=== PATIENT | female | born 1980 | race Caucasian/White ===

== ENCOUNTER 2020-09-24 20:39 | Emergency (ER) | payer MEDICAID, OTHER ==
[~2020-09-24] VITALS: Ht 157.5 cm; Wt 72.6 kg
[~2020-09-24 20:39] MED LIST: ACET-8386 PO; [UNRECOGNIZED DRUG - CODE] PO
[2020-09-24 21:02] VITALS: BP 124/80
--- NOTE | 2020-09-24 21:03 | NUR ---
TO BED AMBULATORY
--- NOTE | 2020-09-24 21:20 | NUR ---
PATIENT PRESENTS TO ED WITH C/O ABDOMINAL PAIN. "IT'S MY CROHN'S DISEASE. I TOOK MY LAST DOSE OF STEROIDS THIS MORNING . SKIN IS PINK/WARM/DRY; AAOX4 WITH EVEN AND STEADY GAIT; LUNGS CLEAR BL; HR EVEN AND REGULAR; PT DENIES ANY FEVER, CP, PATIENT STATES PAIN OF 8/10 AT THIS TIME; VSS; PATIENT POSITIONED FOR COMFORT; HOB ELEVATED; BEDRAILS UP X2; BED DOWN. ER MD MADE AWARE OF PT STATUS.
--- NOTE | 2020-09-24 21:50 | NUR ---
UA OBTAINED AND DIPPED
[2020-09-24] MEDS ORDERED: KETOROLAC 60 MG/2 ML VIAL IM ONE (22:20)
[2020-09-24] MEDS ORDERED: ACET-8386 PO (23:02)
[2020-09-24] MEDS ORDERED: PRED20TA5 PO (23:02)
[2020-09-24] MEDS ORDERED: ONDA8TAB87 PO (23:02)
[2020-09-24] MEDS ORDERED: IBUP-2213 PO (23:02)
[2020-09-24 23:15] VITALS: BP 124/80
--- NOTE | 2020-09-24 23:15 | NUR ---
Patient discharged with v/s stable. Written and verbal after care instructions given and explained. Patient alert, oriented and verbalized understanding of instructions. Ambulatory with steady gait. All questions addressed prior to discharge. ID band removed. Patient advised to follow up with PMD. Rx of HYDROCODONE, IBUPROFEN, PREDNISONE given. Patient educated on indication of medication including possible reaction and side effects. Opportunity to ask questions provided and answered.
== END 2020-09-24 23:15 | disposition home or self-care (01) ==
LOC: MED 20:39
DX: R10.9 Unspecified abdominal pain (principal); R19.7 Diarrhea, unspecified; R11.0 Nausea; Z79.899 Other long term (current) drug therapy
CPT/HCPCS: 81002; 81025; 96372; 99283; J1885

== ENCOUNTER 2023-08-19 23:16 | Inpatient (IN) | payer BC, OTHER ==
[~2023-08-19] VITALS: Ht 157.5 cm; Wt 80.3 kg
[~2023-08-19 23:16] MED LIST changes: -ACET-8386 PO; +ACET-8905 PO; +IBUP-2213 PO; +ONDA8TAB87 PO; +PRED20TA5 PO
[2023-08-19 23:21] VITALS: BP 175/99; PULSE 97; RESP 18; TEMP 98.3; O2SAT 99
[2023-08-20 00:43] LABS: BASOPHILS # (AUTO) 0.1 K/uL (0.00-0.22); BASOPHILS % (AUTO) 1.5 % (0.0-2.0); EOSINOPHILS % (AUTO) 0.5 % (0.0-4.0); HEMATOCRIT 40.2 % (36-48); HEMOGLOBIN 13.6 g/dL (12.0-16.0); LYMPHOCYTES # (AUTO) 1.7 K/uL (2.5-16.5); LYMPHOCYTES % (AUTO) 31.7 % (20.5-51.1); MEAN CORPUSCULAR HEMOGLOBIN 31 pg (27-31); MEAN CORPUSCULAR HGB CONC 34 g/dL (33-37); MEAN CORPUSCULAR VOLUME 91.7 fL (80-94); MONOCYTES # (AUTO) 0.5 K/uL (0.8-1.0); MONOCYTES % (AUTO) 9.8 % (1.7-9.3); NEUTROPHILS % (AUTO) 56.5 % (42.2-75.2); PLATELET COUNT (AUTO) 296 K/uL (140-450); RED BLOOD CELL COUNT(AUTO) 4.39 MIL/uL (4.20-5.40); RED CELL DISTRIBUTION WIDTH 13.4 % (11.6-13.7); WHITE BLOOD COUNT (AUTO) 5.2 K/uL (4.8-10.8)
[2023-08-20 00:47] LABS: AMPHETAMINE, URINE NEGATIVE ng/ml (NEG <=1000); BARBITURATE, URINE NEGATIVE ng/ml (NEG <=200); BENZODIAZEPINE, URINE NEGATIVE ng/mL (NEG <=200); CANNABINOID, URINE NEGATIVE ng/mL (NEG <=50); COCAINE, URINE NEGATIVE ng/mL (NEG <=300); OPIATE, URINE NEGATIVE ng/mL (NEG <=2000); PHENCYCLIDINE SCREEN,URINE NEGATIVE ng/mL (NEG <=25)
[2023-08-20 00:55] LABS: ALANINE AMINOTRANSFERASE 304 U/L (12-78); ALBUMIN 3.6 g/dL (3.4-5.0); ALKALINE PHOSPHATASE 110 U/L (50-136); ANION GAP 10.4 (8-16); ASPARTATE AMINOTRANSFERASE 159 U/L (15-37); CALCIUM 8.7 mg/dL (8.5-10.1); CARBON DIOXIDE 26.4 mmol/L (21-32); CHLORIDE 104 mmol/L (98-107); CREATININE 0.7 mg/dL (0.6-1.3); GFR ARICAN-AMERICAN 117 mL/min (>90); GFR NON ARICAN-AMERICAN 97 mL/min (>90); GLUCOSE 131 mg/dL (74-106); POTASSIUM 3.8 mmol/L (3.5-5.1); SODIUM SERUM 137 mmol/L (136-145); TOTAL BILIRUBIN 0.1 mg/dL (0.0-1.0); TOTAL PROTEIN, SERUM 8.3 g/dL (6.4-8.2); UREA NITROGEN, BLOOD 6 mg/dL (7-18)
[2023-08-20 01:10] LABS: ACETAMINOPHEN < 0.5 ug/ml (10-30); SALICYLATE < 2.8 mg/dL (2.8-20.0)
[2023-08-20] MEDS ORDERED: ONDANSETRON 4 MG ODT ONE (03:16)
[2023-08-20] MEDS ORDERED: ONDANSETRON 4 MG ODT PO ONE (03:20)
[2023-08-20 05:19] LABS: ALBUMIN 3.4 g/dL (3.4-5.0); ANION GAP 16.8 (8-16); CALCIUM 8.1 mg/dL (8.5-10.1); CARBON DIOXIDE 20.8 mmol/L (21-32); CREATININE 1.1 mg/dL (0.6-1.3); POTASSIUM 3.6 mmol/L (3.5-5.1); TOTAL PROTEIN, SERUM 7.4 g/dL (6.4-8.2)
[2023-08-20] MEDS ORDERED: LACTATED RINGERS 1,000 ML IV STA ×2 (06:16→07:39)
[2023-08-20] MEDS ORDERED: NACL 0.9% 1,000 ML IV ONE (06:25)
[2023-08-20 07:30] VITALS: O2SAT 99
[2023-08-20] MEDS ORDERED: ONDANSETRON 4 MG/2 ML VIAL ONE (09:09)
[2023-08-20] MEDS ORDERED: ONDANSETRON 4 MG/2 ML VIAL IVP ONE (09:10)
[2023-08-20] MEDS ORDERED: ONDANSETRON 4 MG/2 ML VIAL IVP PRN (09:25)
[2023-08-20 09:50] LABS: BILIRUBIN,URINE NEGATIVE (NEGATIVE); BLOOD, URINE TRACE-I (NEGATIVE); COLOR,URINE YELLOW (YELLOW); LEUKOCYTE ESTERASE ,URINE NEGATIVE (NEGATIVE); NITRITE, URINE NEGATIVE (NEGATIVE); PROTEIN,URINE NEGATIVE (NEGATIVE); UGLUCOSE NEGATIVE (NEGATIVE); UROBILINOGEN,URINE 0.2 EU/dL (0.2 - 1)
[2023-08-20] MEDS: NACL 0.9% 1,000 ML IV SCH ×2 (09:57→17:29)
[2023-08-20 09:58] LABS: RBC,URINE 0-5 /HPF (0-5)
[2023-08-20 09:59] LABS: BACTERIA,URINE FEW /HPF (None Seen); WBC,URINE 0-5 /HPF (0-5)
[2023-08-20 10:00] LABS: APPEARANCE,URINE CLEAR (CLEAR); SQUAMOUS EPITHELIAL CELL,UR 0-3 (FEW) /LPF (0-3 (FEW))
[2023-08-20] MEDS ORDERED: ESTR1PAT9 TD (10:44)
[2023-08-20] MEDS ORDERED: PROG100C4 PO (10:44)
[2023-08-20] MEDS ORDERED: ONDA4ODT2 PO (10:44)
[2023-08-20 15:13] LABS: ANION GAP 14.5 (8-16); CALCIUM 7.9 mg/dL (8.5-10.1); CARBON DIOXIDE 23.5 mmol/L (21-32); CREATININE 1.2 mg/dL (0.6-1.3)
[2023-08-20] MEDS: ALPRAZolam 0.5 MG TAB PO PRN (15:35)
[2023-08-20 19:36] VITALS: O2SAT 100
[2023-08-20 22:45] VITALS: O2SAT 100
[2023-08-21 00:32] VITALS: O2SAT 100
[2023-08-21 02:55] VITALS: O2SAT 100
[2023-08-21] MEDS: NACL 0.9% 1,000 ML IV SCH ×2 (04:01→09:25)
[2023-08-21 05:58] VITALS: O2SAT 97
[2023-08-21 06:53] LABS: BASOPHILS # (AUTO) 0.1 K/uL (0.00-0.22); BASOPHILS % (AUTO) 0.9 % (0.0-2.0); EOSINOPHILS % (AUTO) 0.2 % (0.0-4.0); HEMATOCRIT 36.8 % (36-48); HEMOGLOBIN 12.4 g/dL (12.0-16.0); LYMPHOCYTES # (AUTO) 2.2 K/uL (2.5-16.5); LYMPHOCYTES % (AUTO) 24.3 % (20.5-51.1); MEAN CORPUSCULAR HEMOGLOBIN 31 pg (27-31); MEAN CORPUSCULAR HGB CONC 34 g/dL (33-37); MEAN CORPUSCULAR VOLUME 92.6 fL (80-94); MONOCYTES # (AUTO) 0.8 K/uL (0.8-1.0); MONOCYTES % (AUTO) 8.2 % (1.7-9.3); NEUTROPHILS # (AUTO) 6.2 K/uL (1.8-7.7); NEUTROPHILS % (AUTO) 66.4 % (42.2-75.2); PLATELET COUNT (AUTO) 267 K/uL (140-450); RED BLOOD CELL COUNT(AUTO) 3.98 MIL/uL (4.20-5.40); RED CELL DISTRIBUTION WIDTH 13.9 % (11.6-13.7); WHITE BLOOD COUNT (AUTO) 9.3 K/uL (4.8-10.8)
[2023-08-21] MEDS: ALPRAZolam 0.5 MG TAB PO PRN (11:41)
[2023-08-21 13:39] LABS: ALANINE AMINOTRANSFERASE 160 U/L (12-78); ALBUMIN 2.7 g/dL (3.4-5.0); ALKALINE PHOSPHATASE 60 U/L (50-136); ANION GAP 10.9 (8-16); ASPARTATE AMINOTRANSFERASE 63 U/L (15-37); CALCIUM 7.7 mg/dL (8.5-10.1); CARBON DIOXIDE 24.4 mmol/L (21-32); CHLORIDE 109 mmol/L (98-107); CREATININE 0.9 mg/dL (0.6-1.3); GFR ARICAN-AMERICAN 87 mL/min (>90); GFR NON ARICAN-AMERICAN 72 mL/min (>90); GLUCOSE 90 mg/dL (74-106); POTASSIUM 3.3 mmol/L (3.5-5.1); SODIUM SERUM 141 mmol/L (136-145); TOTAL BILIRUBIN 0.2 mg/dL (0.0-1.0); TOTAL PROTEIN, SERUM 6.6 g/dL (6.4-8.2); UREA NITROGEN, BLOOD 16 mg/dL (7-18)
[2023-08-21 13:41] LABS: ACETAMINOPHEN < 0.5 ug/ml (10-30)
[2023-08-21 14:51] VITALS: BP 109/69; PULSE 87; RESP 15; TEMP 98
[2023-08-21 15:04] VITALS: BP 109/69; PULSE 87; RESP 15; TEMP 98; O2SAT 98
== END 2023-08-21 16:05 | DRG 918 ==
LOC: MED 23:16 → MTU 08-20 09:29 → MIC 08-21 05:01 → MTU 08-21 07:09
PROVIDERS: ADMIT Hospitalist; ATTEND Hospitalist
DX: T39.1X1A Poisoning by 4-Aminophenol derivatives, accidental (unintentional), initial encounter (principal); R45.851 Suicidal ideations; Z20.822 Contact with and (suspected) exposure to COVID-19; E87.20 Acidosis, unspecified; Y92.89 Other specified places as the place of occurrence of the external cause
CPT/HCPCS: 36415; 80048; 80053; 80305; 81001; 82803; 83735; 85025; 87635-QW; 93005; 96361; 96374; 99291; G0480; G0482; J2405; Q0162

== ENCOUNTER 2024-04-28 12:21 | Emergency (ER) | payer OTHER ==
[~2024-04-28] VITALS: Ht 157.5 cm; Wt 77.1 kg
[~2024-04-28 12:21] MED LIST changes: +ESTR1PAT9 TD; +ONDA-189 PO; +PROG100C4 PO
[2024-04-28 12:34] VITALS: BP 141/91; PULSE 82; RESP 16; TEMP 98.7; O2SAT 99
[2024-04-28] MEDS: KETOROLAC 60 MG/2 ML VIAL IM ONE (13:19)
== END 2024-04-28 13:37 | disposition home or self-care (01) ==
LOC: MED 12:21
DX: S00.83XA Contusion of other part of head, initial encounter (principal); R03.0 Elevated blood-pressure reading, without diagnosis of hypertension; Z90.710 Acquired absence of both cervix and uterus; Z79.899 Other long term (current) drug therapy; W18.39XA Other fall on same level, initial encounter; Y93.89 Activity, other specified; Y92.89 Other specified places as the place of occurrence of the external cause; Y99.8 Other external cause status
CPT/HCPCS: 81025; 96372; 99283; J1885

== ENCOUNTER 2024-05-01 07:38 | Emergency (ER) | payer OTHER ==
[~2024-05-01] VITALS: Ht 157.5 cm; Wt 77.1 kg
[2024-05-01 07:42] VITALS: BP 139/68; PULSE 75; RESP 16; TEMP 97.5; O2SAT 97
[2024-05-01 08:49] VITALS: BP 139/68; PULSE 75; RESP 16; TEMP 97.5; O2SAT 97
== END 2024-05-01 08:51 | disposition home or self-care (01) ==
LOC: MED 07:38
DX: S00.12XA Contusion of left eyelid and periocular area, initial encounter (principal); S00.11XA Contusion of right eyelid and periocular area, initial encounter; Z79.899 Other long term (current) drug therapy; Z90.710 Acquired absence of both cervix and uterus; W18.39XA Other fall on same level, initial encounter; Y93.89 Activity, other specified; Y92.89 Other specified places as the place of occurrence of the external cause; Y99.8 Other external cause status
CPT/HCPCS: 99282